=== PATIENT | female | born 1965 | race Two or more races ===

== ENCOUNTER 2020-04-13 05:25 | Emergency (ER) | payer MEDICAID ==
[~2020-04-13] VITALS: Ht 160 cm; Wt 68.2 kg
[2020-04-13 06:13] LABS: ANION GAP 7 (8-16); BLOOD UREA NITROGEN 18 MG/DL (7-18); CHLORIDE 105 MMOL/L (99-107); CREATININE 0.75 MG/DL (0.40-0.90); GLUCOSE 114 MG/DL (70-104); POTASSIUM 4.2 MMOL/L (3.5-5.1); SODIUM 140 MMOL/L (135-145); TOTAL CARBON DIOXIDE 27.6 MMOL/L (24-32); eGFR 80 ML/MIN
[2020-04-13 06:47] VITALS: BP 147/90
== END 2020-04-13 06:47 | disposition home or self-care (01) ==
LOC: ER 05:29
DX: I10 Essential (primary) hypertension (principal); R11.0 Nausea; R51 Headache; M79.89 Other specified soft tissue disorders
CPT/HCPCS: 36415; 80048; 93005; 99284